=== PATIENT | male | born 1985 | race Caucasian/White ===

== ENCOUNTER 2017-02-21 16:38 | Emergency (ER) | payer MEDICAID ==
[~2017-02-21 16:38] MED LIST: ABILIFY10 MG PO; AMBIEN10 MG PO; AZITHROMYCIN250 M1 PO; BACTRIM DS TABL1 TAB PO; BENZONATATE200 M1 PO; CELEXA10 M1 PO; CELEXA20 M2 PO; CELEXA40 M2 PO; CLINDAMYCIN HC300 MG PO; CYPROHEPTADINE PO; HYDROXYZINE HCL50 M1 PO; LAMICTAL150 M1 PO; LAMICTAL200 MG PO; LEXAPRO20 M1 PO; LUNESTA1 M1 PO; MINIPRESS5 MG PO; NORCO 5/325 TAB1 TAB PO; PROAIR HFA8.5 GM IH; RELAFEN500 MG PO; TRAZODONE; TRAZODONE HCL100 M1 PO; UNKNOWN MEDICATION; VISTARIL50 MG PO; WELLBUTRIN SR150 MG PO; ZYPREXA10 M1; ZYPREXA20 M1 PO; ZYPREXA20 MG PO; [UNRECOGNIZED DRUG - OTHER]; [UNRECOGNIZED DRUG - OTHER] PO
[2017-02-21] MEDS ORDERED: PENICILLIN V P500 M1 PO (20:12)
[2017-02-21] MEDS ORDERED: ULTRAM50 M1 PO (20:12)
== END 2017-02-21 20:18 ==
LOC: EDMED 16:38
DX: K08.89 Other specified disorders of teeth and supporting structures (principal); F17.200 Nicotine dependence, unspecified, uncomplicated; Z88.8 Allergy status to other drugs, medicaments and biological substances

== ENCOUNTER 2017-03-06 18:52 | Emergency (ER) | payer MEDICAID ==
[~2017-03-06 18:52] MED LIST changes: +PENICILLIN V P500 M1 PO; +ULTRAM50 M1 PO
== END 2017-03-06 20:21 ==
LOC: EDMED 18:52
PROC: 2W3CX1Z Immobilization of Right Lower Arm using Splint (ICD-10-PCS; principal; 2017-03-06)
DX: S62.366A Nondisplaced fracture of neck of fifth metacarpal bone, right hand, initial encounter for closed fracture (principal); S80.212A Abrasion, left knee, initial encounter; W01.0XXA Fall on same level from slipping, tripping and stumbling without subsequent striking against object, initial encounter; Y92.410 Unspecified street and highway as the place of occurrence of the external cause

== ENCOUNTER 2017-03-12 18:29 | Emergency (ER) | payer MEDICAID | END 2017-03-12 20:41 | disposition T | LOC: EDMED 18:29 | DX: R51 Headache (principal); F31.9 Bipolar disorder, unspecified; F41.9 Anxiety disorder, unspecified; F17.210 Nicotine dependence, cigarettes, uncomplicated; Z98.890 Other specified postprocedural states | CPT/HCPCS: J0780; J1200; J1885 ==